=== PATIENT | female | born 1985 | race Caucasian/White ===

== ENCOUNTER 2021-09-21 21:23 | Emergency (ER) | payer MEDICAID ==
[~2021-09-21] VITALS: Ht 160 cm; Wt 80.3 kg
--- NOTE | 2021-09-21 21:30 | NUR ---
pt to ER w/ c/o left-sided chest pain stabbing in nature since 0800, 10/21 pain, Pt denies n/v/d, pt denies fever, pt denies CARVER, pt speaks in complete sentences, ambulates with strong steady gait.
[2021-09-21 21:33] VITALS: BP_SYST 113
--- NOTE | 2021-09-21 21:43 | NUR ---
DR HANCOCK AT PT BEDSIDE
--- NOTE | 2021-09-21 21:58 | NUR ---
Placed in room 03 . Placed on dairy management specialist, blood pressure machine and pulse oximeter. To gown for exam. Side rails up. Report given to VADIM MUÑIZ.
--- NOTE | 2021-09-21 22:31 | NUR ---
PT PRESENTED TO THE ER DRIVEN BY HER . PT HAS COMPLAIN OF CHEST PAIN THAT OFTEN RADIATES TO THE BACK. ALSO PAIN IS MORE INTENSE ON EXALE. THE PAIN IS A SHARP/BURNING PAIN IT STARTED APX TODAY AT 8AM. PT FIRST NOTICED THE PAIN WHILE AT [facility] TWO WEEKS AGO. TODAY PATIENT WAS AT FRIENDS HOME SITTING SOCIALIZING WHEN THE PAIN INTENSIFIED AND CAME IN. PT DENIES TABACCO, DRUG AND ALCOHOL USE. PT AOX4, SHE IS IN BED WITH BED LOWERED, LOCKED AND RAILS U. VS ARE WITHIN NORMAL LIMITS NON FEBRILE PAIN LEVEL DROPPED FROM TRIAGE FROM 7/10 TO 5/10.
[2021-09-21] MEDS ORDERED: ASPIRIN 325 MG TABLET PO ONE (23:30)
[2021-09-21] MEDS ORDERED: KETOROLAC TROMETHAMINE 30 MG VIAL IM ONE (23:30)
[2021-09-22 00:21] LABS: BASOPHILS % (AUTO) 0.5 % (0.0-2.0); EOSINOPHILS # (AUTO) 0.2 K/uL (0.0-0.4); EOSINOPHILS % (AUTO) 3.8 % (0.0-4.0); HEMATOCRIT 36.4 % (36-48); HEMOGLOBIN 12.8 g/dL (12.0-16.0); LYMPHOCYTES # (AUTO) 2.3 K/uL (1.0-5.5); LYMPHOCYTES % (AUTO) 45.4 % (20.5-51.5); MEAN CORPUSCULAR HEMOGLOBIN 30 pg (27-31); MEAN CORPUSCULAR HGB CONC 35 % (32-36); MEAN CORPUSCULAR VOLUME 85 fL (79.0-98.0); MONOCYTES # (AUTO) 0.4 K/uL (0.0-1.0); MONOCYTES % (AUTO) 8.3 % (1.7-9.3); NEUTROPHILS # (AUTO) 2.1 K/uL (1.8-7.7); PLATELET COUNT (AUTO) 195 K/uL (130-430); RED BLOOD CELL COUNT(AUTO) 4.29 MIL/uL (4.2-6.2); RED CELL DISTRIBUTION WIDTH 13.3 % (9.0-15.0); WHITE BLOOD COUNT (AUTO) 5.1 K/uL (4.8-10.8)
[2021-09-22 00:33] LABS: ANION GAP 7 (5-15); CALCIUM 8.4 mg/dL (8.4-11.0); CHLORIDE 107 mmol/L (98-107); CREATININE 0.82 mg/dL (0.55-1.30); GLUCOSE 104 mg/dL (70-99); SODIUM SERUM 137 mmol/L (136-145); UREA NITROGEN, BLOOD 16 mg/dL (8-21)
[2021-09-22 00:41] LABS: ALANINE AMINOTRANSFERASE 15 U/L (12-78); ALBUMIN 3.4 g/dL (3.4-4.8); ASPARTATE AMINOTRANSFERASE 12 U/L (10-37); TOTAL BILIRUBIN 0.2 mg/dL (0.0-1.0)
[2021-09-22 00:44] LABS: GFR AFRICAN AMERICAN 101 mL/min (>90)
[2021-09-22] MEDS ORDERED: NAPR-686 PO (01:33)
[2021-09-22 01:52] VITALS: BP_SYST 121
--- NOTE | 2021-09-22 01:54 | NUR ---
Patient given written and verbal discharge instructions and verbalizes understanding. ER DR SANTI VANESSA discussed with patient the results and treatment provided. Patient in stable condition. ID arm band removed. Rx of NAPROXEN AND TYLENOL CODINE given. Patient educated on pain management and to follow up with PMD. Pain Scale . Opportunity for questions provided and answered. Medication side effect fact sheet provided.
== END 2021-09-22 01:54 | disposition home or self-care (01) ==
LOC: SED 21:23
DX: R07.89 Other chest pain (principal); R06.02 Shortness of breath
CPT/HCPCS: 36415; 71045; 80053; 84484; 85025; 85379; 93005; 96372; 99285; J1885